=== PATIENT | male | born 1985 | race Caucasian/White ===

== ENCOUNTER 2021-02-06 17:39 | Emergency (ER) | payer MEDICAID ==
[2021-02-06] MEDS ORDERED: Sodium Chloride 0.9% 2.5 ML Syringe FLUSH PRN (20:58)
[2021-02-06] MEDS ORDERED: Sodium Chloride 0.9% 10 ML Syringe FLUSH PRN (20:58)
--- NOTE | 2021-02-06 21:02 | EDM.PDOC ---
ED HPI GENERAL MEDICAL PROBLEM - General Chief Complaint: Lower Extremity Injury/Pain Stated Complaint: WATER RETENTION IN LOWER EXTREMITY Time Seen by Provider: 02/06/21 20:56 Source of Information: Reports: Patient History Limitations: Reports: No Limitations - History of Present Illness INITIAL COMMENTS - FREE TEXT/NARRATIVE: 35-year-old male with history of RA, DJD, sarcoidosis on chronic daily prednisone for 3 years, presents with bilateral lower extremity edema worsening over the past 3 days. Associated with decreased urine output for 2 days. He denies fever, chills, vomiting, diarrhea, chest pain, shortness of breath, palpitations. He is currently taking Humira. He also notes mild discomfort to his left calf. ROS: A 10-point review of systems, other than pertinent positives and negatives as stated per HPI, is otherwise negative Past medical history: No additional pertinent history Past Surgical history: No additional pertinent history Social history: No additional pertinent history Family history: No additional pertinent history PHYSICAL EXAM General: AOx4, GCS = 15, No distress HEENT: dry mucous membrane Neck: supple, no meningismus, no Kernig or Brudzinski Cardiac: S1S2 RRR Respiratory: CTAB, no crackles or rales, no wheezing Abdomen: Soft, nontender, no rebound or guarding, nondistended, no pulsatile mass. Back: nontender Musculoskeletal: NVI distally, non pitting lower extremity bilateral edema. Mild tenderness to left calf. DP pulse +2 bilaterally Neuro: No focal deficits, CN 2 - 12 WNL. Bilateral Foot Pain Score (Numeric/FACES): 8 - Related Data Allergies Allergy/AdvReac Type Severity Reaction Status Date / Time Penicillins Allergy Airway Verified 02/06/21 19:48 Tightness terbinafine Allergy Other Verified 02/06/21 19:48 Home Meds: Home Meds ALPRAZolam [Xanax] 0.5 mg PO QID PRN 12/03/13 [History] buPROPion [buPROPion XL] 300 mg PO DAILY 12/03/13 [History] predniSONE 20 mg PO DAILY 12/03/13 [History] Acetaminophen/HYDROcodone [[place] 325-5 MG] 1 dose PO Q4H #20 tablet 04/06/19 [Rx] Albuterol Sulfate [Proair Hfa] 8.5 gm IH ASDIRECTED 04/06/19 [History] Fluticasone/Salmeterol [Advair 100-50] 2 puff INH BID 04/06/19 [History] Metoprolol Succinate [Toprol XL 50mg] 50 mg PO DAILY 04/06/19 [History] traZODone HCl [Trazodone HCl] 50 mg PO ASDIRECTED 04/06/19 [History] Lidocaine 5% [Lidoderm 5%] 1 patch TOP DAILY PRN #30 patch 04/27/19 [Rx] Adalimumab [Humira(Cf) Pen] 40 mg IM 02/06/21 [History] Furosemide [Lasix] 20 mg PO DAILY #3 tablet 02/07/21 [Rx] Past Medical History HEENT History: Reports: None Cardiovascular History: Reports: Arrhythmia Respiratory History: Reports: Other (See Below) Other Respiratory History: Sarcoidosis Gastrointestinal History: Reports: None Genitourinary History: Reports: None Musculoskeletal History: Reports: None Neurological History: Reports: None Psychiatric History: Reports: Anxiety, Depression Endocrine/Metabolic History: Reports: None Insulin Pump Model 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 Auto Body 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: 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 Hematologic History: Reports: None Immunologic History: Reports: None Oncologic (Cancer) History: Reports: None Dermatologic History: Reports: Psoriasis - Infectious Disease History Infectious Disease History: Reports: Chicken Pox - Past Surgical History Head Surgeries/Procedures: Reports: None Social & Family History - Family History Family Medical History: No Pertinent Family History - Tobacco Use Tobacco Use Status *Q: Never Tobacco User - Caffeine Use Caffeine Use: Reports: Coffee - Recreational Drug Use Recreational Drug Use: Yes Recreational Drug Type: Reports: Marijuana/Hashish Review of Systems - Review of Systems Review Of Systems: See Below (see dictation) ED EXAM, GENERAL - Physical Exam Exam: See Below (see dictation) #1 Interpretation EKG Interpretation Comments: Heart rate = 67 bpm, normal sinus rhythm, normal QRS interval, no STEMI. EKG and rhythm strip interpreted by me at 2121 Course - Vital Signs Last Recorded V/S: Last Vital Signs Temp 97.2 F 02/06/21 21:51 Pulse 71 02/06/21 22:09 Resp 16 02/06/21 21:51 BP 135/71 02/06/21 22:09 Pulse Ox 96 02/06/21 22:09 - Orders/Labs/Meds Orders: Active Orders 24 hr Category Date Time Status Cardiac Monitoring [RC] . DIRECTED Care 02/06/21 20:58 Active Sodium Chloride 0.9% [Saline Flush] Med 02/06/21 20:58 Active 10 ml FLUSH ASDIRECTED PRN Sodium Chloride 0.9% [Saline Flush] Med 02/06/21 20:58 Active 2.5 ml FLUSH ASDIRECTED PRN Saline Lock Insert [OM.PC] Stat Oth 02/06/21 20:59 Ordered Medication Orders Sodium Chloride (Sodium Chloride 0.9% 10 Ml Syringe) 10 ml FLUSH ASDIRECTED PRN PRN Reason: Keep Vein Open Last Admin: 02/06/21 21:46 Dose: 10 ml Documented by: [place] Sodium Chloride (Sodium Chloride 0.9% 2.5 Ml Syringe) 2.5 ml FLUSH ASDIRECTED PRN PRN Reason: Keep Vein Open Last Admin: 02/06/21 21:46 Dose: 2.5 ml Documented by: [place] Labs: Laboratory Tests 02/06/21 02/06/21 02/06/21 Range/Units 21:45 21:45 21:45 WBC 9.37 (4.0-11.0) K/uL RBC 5.00 (4.50-5.90) M/uL Hgb 15.7 (13.0-17.0) g/dL Hct 46.6 (38.0-50.0) % MCV 93.2 (80.0-98.0) fL MCH 31.4 (27.0-32.0) pg MCHC 33.7 (31.0-37.0) g/dL RDW Std Deviation 46.5 (28.0-62.0) fl RDW Coeff of [place] 14 (11.0-15.0) % Plt Count 322 (150-400) K/uL MPV 10.80 (7.40-12.00) fL Neut % (Auto) 67.7 (48.0-80.0) % Lymph % (Auto) 18.0 (16.0-40.0) % [place] % (Auto) 8.8 (0.0-15.0) % Eos % (Auto) 5.1 (0.0-7.0) % Baso % (Auto) 0.4 (0.0-1.5) % Neut # (Auto) 6.3 H (1.4-5.7) K/uL Lymph # (Auto) 1.7 (0.6-2.4) K/uL [place] # (Auto) 0.8 (0.0-0.8) K/uL Eos # (Auto) 0.5 (0.0-0.7) K/uL Baso # (Auto) 0.0 (0.0-0.1) K/uL Nucleated RBC % 0.0 /100WBC Nucleated RBCs # 0 K/uL D-Dimer, Quantitative 0.41 (0.0-0.50) mg/L FEU Sodium 141 (136-148) mmol/L Potassium 3.8 (3.5-5.1) mmol/L Chloride 102 (98-107) mmol/L Carbon Dioxide 26.8 (21.0-32.0) mmol/L BUN 9 (7.0-18.0) mg/dL Creatinine 1.0 (0.8-1.3) mg/dL Est Cr Clr Drug Dosing 122.16 mL/min Estimated GFR (MDRD) > 60.0 ml/min Glucose 92 (74-106) mg/dL Calcium 8.1 L (8.5-10.1) mg/dL Total Bilirubin 0.5 (0.2-1.0) mg/dL AST 28 (15-37) IU/L ALT 38 (14-63) IU/L Alkaline Phosphatase 65 (46-116) U/L Troponin I < 0.050 (0.000-0.056) ng/mL B-Natriuretic Peptide (<100) PG/ML Total Protein 7.0 (6.4-8.2) g/dL Albumin 3.7 (3.4-5.0) g/dL Globulin 3.3 (2.6-4.0) g/dL Albumin/Globulin Ratio 1.1 (0.9-1.6) Urine Color Urine Appearance Urine pH (5.0-8.0) Ur Specific [place] (1.001-1.035) Urine Protein (NEGATIVE) mg/dL Urine Glucose (UA) (NEGATIVE) mg/dL Urine Ketones (NEGATIVE) mg/dL Urine Occult Blood (NEGATIVE) Urine Nitrite (NEGATIVE) Urine Bilirubin (NEGATIVE) Urine Urobilinogen (<2.0) EU/dL Ur Leukocyte Esterase (NEGATIVE) 02/06/21 02/06/21 Range/Units 21:45 21:48 WBC (4.0-11.0) K/uL RBC (4.50-5.90) M/uL Hgb (13.0-17.0) g/dL Hct (38.0-50.0) % MCV (80.0-98.0) fL MCH (27.0-32.0) pg MCHC (31.0-37.0) g/dL RDW Std Deviation (28.0-62.0) fl RDW Coeff of Dud[place] (11.0-15.0) % Plt Count (150-400) K/uL MPV (7.40-12.00) fL Neut % (Auto) (48.0-80.0) % Lymph % (Auto) (16.0-40.0) % [place] % (Auto) (0.0-15.0) % Eos % (Auto) (0.0-7.0) % Baso % (Auto) (0.0-1.5) % Neut # (Auto) (1.4-5.7) K/uL Lymph # (Auto) (0.6-2.4) K/uL [place] # (Auto) (0.0-0.8) K/uL Eos # (Auto) (0.0-0.7) K/uL Baso # (Auto) (0.0-0.1) K/uL Nucleated RBC % /100WBC Nucleated RBCs # K/uL D-Dimer, Quantitative (0.0-0.50) mg/L FEU Sodium (136-148) mmol/L Potassium (3.5-5.1) mmol/L Chloride (98-107) mmol/L Carbon Dioxide (21.0-32.0) mmol/L BUN (7.0-18.0) mg/dL Creatinine (0.8-1.3) mg/dL Est Cr Clr Drug Dosing mL/min Estimated GFR (MDRD) ml/min Glucose (74-106) mg/dL Calcium (8.5-10.1) mg/dL Total Bilirubin (0.2-1.0) mg/dL AST (15-37) IU/L ALT (14-63) IU/L Alkaline Phosphatase (46-116) U/L Troponin I (0.000-0.056) ng/mL B-Natriuretic Peptide 14 (<100) PG/ML Total Protein (6.4-8.2) g/dL Albumin (3.4-5.0) g/dL Globulin (2.6-4.0) g/dL Albumin/Globulin Ratio (0.9-1.6) Urine Color YELLOW Urine Appearance CLEAR Urine pH 6.0 (5.0-8.0) Ur Specific [place] 1.020 (1.001-1.035) Urine Protein NEGATIVE (NEGATIVE) mg/dL Urine Glucose (UA) NEGATIVE (NEGATIVE) mg/dL Urine Ketones NEGATIVE (NEGATIVE) mg/dL Urine Occult Blood NEGATIVE (NEGATIVE) Urine Nitrite NEGATIVE (NEGATIVE) Urine Bilirubin NEGATIVE (NEGATIVE) Urine Urobilinogen 0.2 (<2.0) EU/dL Ur Leukocyte Esterase NEGATIVE (NEGATIVE) Meds: Medications Generic Name Dose Route Start Last Admin Trade Name Freq PRN Reason Stop Dose Admin Sodium Chloride 10 ml 02/06/21 20:58 02/06/21 21:46 Sodium Chloride 0.9% 10 Ml Syringe FLUSH 10 ml ASDIRECTED PRN Administration Keep Vein Open Sodium Chloride 2.5 ml 02/06/21 20:58 02/06/21 21:46 Sodium Chloride 0.9% 2.5 Ml Syringe FLUSH 2.5 ml ASDIRECTED PRN Administration Keep Vein Open - Re-Assessments/Exams Free Text/Narrative Re-Assessment/Exam: 02/06/21 23:58 he is currently stable for discharge. I performed a repeat exam and did not appreciate new abnormal findings. Patient exhibits normal vital signs and has a normal gait on road test. I advised the patient to return to the ER for reevaluation if symptoms worsened, including fever, worsening pain, or any other worrisome symptoms. I instructed the patient to follow up with their PCP within 2-3 days. MEDICAL DECISION MAKING: I reviewed the patients past medical records, lab and radiographic findings. I discussed the case with the patient. My differential diagnosis included: Dependent edema, DVT, nephrogenic edema. Kidney function unremarkable, no fever or leukocytosis to suggest for infectious etiology. No erythema or warmth to suggest cellulitis. Ultrasound was negative for DVT. EKG did not demonstrate any arrhythmia. Patient stable for discharge with short course of diuretics and instructions to keep legs elevated and wear compressive stockings. Departure - Departure Time of Disposition: 00:00 Disposition: Home, Self-Care 01 Clinical Impression: Lower extremity edema - Discharge Information *PRESCRIPTION DRUG MONITORING PROGRAM REVIEWED*: Not Applicable *COPY OF PRESCRIPTION DRUG MONITORING REPORT IN PATIENT ABHI: Not Applicable Prescriptions: Furosemide [Lasix] 20 mg PO DAILY #3 tablet Instructions: Peripheral Edema Referrals: Pilar Kuo MD [Primary Care Provider] - 3 Days Forms: ED Department Discharge Additional Instructions: The need for follow-up, as well as the timing and circumstances, are variable depending upon the specifics of your emergency department visit. If you don't have a primary care physician on staff, we will provide you with a referral. We always advise you to contact your personal physician following an emergency department visit to inform them of the circumstance of the visit and for follow-up with them and/or the need for any referrals to a consulting specialist. The emergency department will also refer you to a specialist when appropriate. This referral assures that you have the opportunity for follow-up care with a specialist. All of these measure are taken in an effort to provide you with optimal care, which includes your follow-up. Under all circumstances we always encourage you to contact your private physician who remains a resource for coordinating your care. When calling for follow-up care, please make the office aware that this follow-up is from your recent emergency room visit. If for any reason you are refused follow-up, please contact the [facility] Emergency Department at and asked to speak to the emergency department charge nurse. If you do not have a primary care doctor, please follow up with the clinics below within 3-5 days. [facility] - Primary Care [address] [place] [address] [facility] [address] [place] [address] Sepsis Event Note (ED) - Focused Exam Vital Signs: Vital Signs Temp Pulse Resp BP Pulse Ox 02/06/21 22:09 71 135/71 96 02/06/21 21:51 97.2 F 71 16 135/71 98 02/06/21 19:52 98.4 F 74 17 140/72 96 - My Orders Last 24 Hours: My Active Orders 02/06/21 20:58 Cardiac Monitoring [RC] . DIRECTED Sodium Chloride 0.9% [Saline Flush] 10 ml FLUSH ASDIRECTED PRN Sodium Chloride 0.9% [Saline Flush] 2.5 ml FLUSH ASDIRECTED PRN 02/06/21 20:59 Saline Lock Insert [OM.PC] Stat - Assessment/Plan Last 24 Hours: My Active Orders 02/06/21 20:58 Cardiac Monitoring [RC] . DIRECTED Sodium Chloride 0.9% [Saline Flush] 10 ml FLUSH ASDIRECTED PRN Sodium Chloride 0.9% [Saline Flush] 2.5 ml FLUSH ASDIRECTED PRN 02/06/21 20:59 Saline Lock Insert [OM.PC] Stat
[2021-02-06 22:17] LABS: BLOOD UREA NITROGEN,BUN 9 mg/dL (7.0-18.0); CARBON DIOXIDE,CO2 26.8 mmol/L (21.0-32.0); CHLORIDE,CL 102 mmol/L (98-107); GLUCOSE RANDOM 92 mg/dL (74-106); POTASSIUM,K 3.8 mmol/L (3.5-5.1); SODIUM,NA 141 mmol/L (136-148)
--- NOTE | 2021-02-06 22:30 | CR ---
Indication: Lower extremity edema. Technique: AP portable view of the chest. Comparison: June 12, 2018. Findings: The heart is normal in size. The lungs are clear. No infiltrate, pleural effusion, or pneumothorax is identified. Impression: No acute cardiopulmonary process Dictated by Shea Ariza MD @ 02/06/2021 10:28:23 PM (Electronically Signed)
--- NOTE | 2021-02-06 23:33 | US ---
INDICATION: Pain left leg COMPARISON: None. TECHNIQUE: A compression venous ultrasound exam was performed of the left lower extremity using kelsey-scale imaging, color Doppler and spectral Doppler analysis. FINDINGS: Sonographic imaging of the left lower extremity demonstrates normal compressibility and color Doppler venous blood flow within the common femoral vein, deep femoral vein, and the proximal greater saphenous vein. Within the thigh, the femoral vein is patent and compressible. At a lower level, the popliteal and posterior tibial veins also show normal compressibility and color Doppler venous blood flow. Limited imaging of the contralateral groin demonstrates a normal spectral waveform and color Doppler venous blood flow within the right common femoral vein. IMPRESSION: Normal venous ultrasound exam. No evidence of deep vein thrombosis within the left lower extremity. Dictated by Shea Ariza MD @ 02/06/2021 11:32:43 PM (Electronically Signed)
== END 2021-02-07 00:16 | disposition home or self-care (01) ==
LOC: MW.ED 17:39
DX: R60.0 Localized edema (principal); M06.9 Rheumatoid arthritis, unspecified; Z88.0 Allergy status to penicillin; Z88.8 Allergy status to other drugs, medicaments and biological substances; Z79.899 Other long term (current) drug therapy
CPT/HCPCS: 36415; 71045; 71045-26; 80053; 81003; 83880; 84484; 85025; 85379; 93005; 93971-26-LT; 93971-LT; 99284-25

== ENCOUNTER 2021-05-04 16:13 | Emergency (ER) | payer MEDICAID ==
--- NOTE | 2021-05-04 18:11 | EDM.PDOC ---
ED HPI GENERAL MEDICAL PROBLEM - General Chief Complaint: Abdominal Pain Stated Complaint: NOT BEEN ABLE TO KEEP FOOD DOWN 5 DAYS Time Seen by Provider: 05/04/21 17:54 Source of Information: Reports: Patient History Limitations: Reports: No Limitations - History of Present Illness INITIAL COMMENTS - FREE TEXT/NARRATIVE: Resents reporting cough and postnasal drip. He states for the last 5 days he has had his stuffy nose and postnasal drip which causes him to cough. He has been coughing so hard that it makes him throw up. He has had no fever or sore throat. He has been eating and drinking fine. He states that back before he lost his taste and smell had a chills and cough and vomiting but never tested for Covid. He is unvaccinated. He has a long history of medical problems including rheumatoid arthritis, sarcoidosis, degenerative disc disease of the lumbar spine, herniated disks. He states that he was left on prednisone too long and now is being tested for adrenal suppression. He has a primary provider in [place] who manages his chronic problems and with whom he has an appointment on May 24. Lower Back Pain Score (Numeric/FACES): 6 - Related Data Allergies Allergy/AdvReac Type Severity Reaction Status Date / Time Penicillins Allergy Airway Verified 05/04/21 16:48 Tightness terbinafine Allergy Other Verified 05/04/21 16:48 Home Meds: Home Meds ALPRAZolam [Xanax] 0.5 mg PO QID PRN 12/03/13 [History] buPROPion [buPROPion XL] 300 mg PO DAILY 12/03/13 [History] predniSONE 20 mg PO DAILY 12/03/13 [History] Albuterol Sulfate [Proair Hfa] 8.5 gm IH ASDIRECTED 04/06/19 [History] Fluticasone/Salmeterol [Advair 100-50] 2 puff INH BID 04/06/19 [History] Metoprolol Succinate [Toprol XL 50mg] 50 mg PO DAILY 04/06/19 [History] traZODone HCl [Trazodone HCl] 50 mg PO ASDIRECTED 04/06/19 [History] Adalimumab [Humira(Cf) Pen] 40 mg IM 02/06/21 [History] Furosemide [Lasix] 20 mg PO DAILY #3 tablet 02/07/21 [Rx] Gabapentin [Neurontin] 300 mg PO 05/04/21 [History] Promethazine HCl/Codeine [Promethazine-Codeine Syrup] 10 ml PO Q8HR PRN #240 syrup 05/04/21 [Rx] Past Medical History HEENT History: Reports: None Cardiovascular History: Reports: Arrhythmia Respiratory History: Reports: Other (See Below) Other Respiratory History: Sarcoidosis Gastrointestinal History: Reports: None Genitourinary History: Reports: None Musculoskeletal History: Reports: None Neurological History: Reports: None Psychiatric History: Reports: Anxiety, Depression Endocrine/Metabolic History: Reports: None 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 Pump 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 Hematologic History: Reports: None Immunologic History: Reports: None Oncologic (Cancer) History: Reports: None Dermatologic History: Reports: Psoriasis - Infectious Disease History Infectious Disease History: Reports: Chicken Pox - Past Surgical History Head Surgeries/Procedures: Reports: None Social & Family History - Family History Family Medical History: No Pertinent Family History - Tobacco Use Tobacco Use Status *Q: Former Tobacco User Used Tobacco, but Quit: Yes Month/Year Tobacco Last Used: 09/2018 - Caffeine Use Caffeine Use: Reports: Soda, Tea - Recreational Drug Use Recreational Drug Use: Yes Recreational Drug Type: Reports: Marijuana/Hashish ED ROS GENERAL - Review of Systems Review Of Systems: Comprehensive ROS is negative, except as noted in HPI. ED EXAM, GI/ABD - Physical Exam Exam: See Below Exam Limited By: No Limitations General Appearance: Alert, No Apparent Distress Ears: Normal External Exam, Normal TMs Nose: Normal Inspection, Normal Mucosa Throat/Mouth: Normal Inspection, Normal Oropharynx Head: Atraumatic, Normocephalic Neck: Normal Inspection. No: Lymphadenopathy (L), Lymphadenopathy (R) Respiratory/Chest: No Respiratory Distress, Lungs Clear, Normal Breath Sounds, No Accessory Muscle Use, Other (No cough noted in exam room) Cardiovascular: Normal Peripheral Pulses, Regular Rate, Rhythm GI/Abdominal Exam: Soft Back Exam: Normal Inspection, Full Range of Motion Extremities: Normal Inspection, Normal Range of Motion Neurological: Alert, Oriented, Normal Cognition Psychiatric: Normal Affect, Normal Mood Skin Exam: Warm, Dry, Intact, Normal Color, No Rash Lymphatic: No Adenopathy Course - Vital Signs Last Recorded V/S: Last Vital Signs Temp 36.8 C 05/04/21 16:51 Pulse 86 05/04/21 16:51 Resp 20 05/04/21 16:51 BP 138/74 05/04/21 16:51 Pulse Ox 95 05/04/21 16:51 - Orders/Labs/Meds Labs: Laboratory Tests 05/04/21 Range/Units 16:55 Influenza Type A RNA NEGATIVE (NEGATIVE) Influenza Type B RNA NEGATIVE (NEGATIVE) SARS-CoV-2 RNA (ANDREW) POSITIVE H (NEGATIVE) Departure - Departure Time of Disposition: 18:12 Disposition: Home, Self-Care 01 Condition: Good Clinical Impression: COVID-19 - Discharge Information Prescriptions: Promethazine HCl/Codeine [Promethazine-Codeine Syrup] 10 ml PO Q8HR PRN #240 syrup PRN Reason: Cough Referrals: Pilar Kuo MD [Primary Care Provider] - Forms: ED Department Discharge Additional Instructions: The following information is given to patients seen in the emergency department who are being discharged to home. This information is to outline your options for follow-up care. We provide all patients seen in our emergency department with a follow-up referral. The need for follow-up, as well as the timing and circumstances, are variable depending upon the specifics of your emergency department visit. If you don't have a primary care physician on staff, we will provide you with a referral. We always advise you to contact your personal physician following an emergency department visit to inform them of the circumstance of the visit and for follow-up with them and/or the need for any referrals to a consulting specialist. The emergency department will also refer you to a specialist when appropriate. This referral assures that you have the opportunity for follow-up care with a specialist. All of these measure are taken in an effort to provide you with optimal care, which includes your follow-up. Under all circumstances we always encourage you to contact your private physician who remains a resource for coordinating your care. When calling for follow-up care, please make the office aware that this follow-up is from your recent emergency room visit. If for any reason you are refused follow-up, please contact the [facility] Emergency Department at and asked to speak to the emergency department charge nurse. 1. Follow-up with your primary provider in [place] as previously scheduled 2. May take cough syrup every 8 hours as needed for cough. No driving or operating machinery 3. Drink plenty of fluids and rest 4. Sinus toileting: Use a Sowmya pot or saline spray rinse bottle, follow with a nasal decongestant such as Afrin 1 spray in each nostril. In the evening, follow that with 2 sprays each nostril of the either Nasacort or Flonase. 5. Your COVID test is positive. You are at high risk for disease progression due to your weight, chronic disease and immunocompromising medications. You will be called tomorrow for monclonal antibody infusions to treat your COVID. You will be called by the [facility] department regarding quarantine. Sepsis Event Note (ED) - Evaluation Sepsis Screening Result: No Definite Risk - Focused Exam Vital Signs: Vital Signs Temp Pulse Resp BP Pulse Ox 05/04/21 16:51 36.8 C 86 20 138/74 95
[2021-05-04 18:30] LABS: CORONAVIRUS COVID-19 NAA POSITIVE (NEGATIVE); INFLUENZA A NAA NEGATIVE (NEGATIVE); INFLUENZA B NAA NEGATIVE (NEGATIVE)
== END 2021-05-04 19:10 | disposition home or self-care (01) ==
LOC: MW.ED 16:13
DX: U07.1 COVID-19 (principal); Z88.0 Allergy status to penicillin; Z88.1 Allergy status to other antibiotic agents; Z79.899 Other long term (current) drug therapy; Z87.891 Personal history of nicotine dependence
CPT/HCPCS: 0240U; 99283

== ENCOUNTER 2021-05-06 22:08 | Emergency (ER) | payer MEDICAID ==
[2021-05-06] MEDS ORDERED: Ketorolac 30 MG/ML SDV IM ONE (23:21)
--- NOTE | 2021-05-06 23:24 | EDM.PDOC ---
ED HPI GENERAL MEDICAL PROBLEM - General Chief Complaint: Respiratory Problem Stated Complaint: LOW OXYGEN Time Seen by Provider: 05/06/21 22:27 - History of Present Illness INITIAL COMMENTS - FREE TEXT/NARRATIVE: CHIEF COMPLAINT(S): "I am feeling worse." HISTORY OF PRESENT ILLNESS: This is a 35-year-old man with a recent diagnosis of COVID-19 status post monoclonal antibody infusion yesterday who comes to the emergency department with a chief complaint of "I am feeling worse." The patient states that he is feeling worse. He states that the cough is not getting any better and that he is having posttussive vomiting with streaks of blood. He denies any hemoptysis. He denies any lower extremity edema. He states his body aches are just not going away and he is now starting to get a headache which is bifrontal not associated with any blurry vision, double vision, loss of vision. He denies any trouble walking speaking or swallowing. He states that he has tried the codeine cough syrup but "I am not taking anythin g because I have that omicron thing." REVIEW OF SYSTEMS: Constitutional: Denies fever, chills. Eyes: Denies eye pain Ears, Nose, Mouth, & Throat: Denies earache Cardiovascular: Denies chest pain Respiratory: Positive for productive cough. Denies shortness of breath Gastrointestinal: Positive for posttussive emesis. Denies Nausea, vomiting, diarrhea, hematochezia. Genitourinary: Denies hematuria Skin:Denies a rash MSK: Positive for body aches Neurological: Positive for headache. Denies numbness, tingling, weakness Psychiatric: Denies depression PAST MEDICAL HISTORY: As per history of present illness and as reviewed below otherwise noncontributory. SURGICAL HISTORY: As per history of present illness and as reviewed below otherwise noncontributory. SOCIAL HISTORY: As per history of present illness and as reviewed below otherwise noncontributory. FAMILY HISTORY: As per history of present illness and as reviewed below otherwise noncontributory. EXAMINATION OF ORGAN SYSTEMS/BODY AREAS: Constitutional: Blood pressure was 122/65, heart rate 105, respiratory rate 22 with an oxygen saturation 97% on room air. Temperature 36.7 General: Well-appearing man who is in no acute distress Psychiatric: Appropriate mood and affect. Eyes: No scleral icterus or conjunctival erythema ENMT: Moist mucous membranes. No pharyngeal erythema Cardiovascular: Regular, rate, and rhythm. No gallops, murmurs, or rubs. Bilateral upper extremity pulses symmetric and intact. No peripheral edema. No JVD. Respiratory: Lungs clear to auscultation bilaterally. No wheezes, rales, or rhonchi. Speaking in full sentences. No increased work of breathing Gastrointestinal: Soft, non-tender, non-distended. Normoactive bowel sounds Genitourinary: No suprapubic tenderness Musculoskeletal: Normal range of motion. Skin: No lesions or abrasions. Neurological: Alert, GCS 15 strength and sensation grossly intact in upper and lower extremities bilaterally MEDICAL DECISION MAKING AND COURSE IN THE ED WITH INTERPRETATION/REVIEW OF DIAGNOSTIC STUDIES: This is a 35-year-old man without any reported past medical history who presents to the emergency department with continued Covid symptoms s tatus post monoclonal antibody infusion yesterday with mild tachycardia otherwise appears well. At this time we will treat the patient with Toradol for his body aches and his headache. I did discuss with him at this time that I do not believe any further work-up is indicated. I did discuss appropriate treatment at home with Tylenol and Motrin and p.o. hydration. He was given strict return precautions. The patient was amenable to discharge and had no further questions. DISPOSITION: The patient was discharged home in stable condition. The patient will follow up with his primary care physician in 3 to 5 days CONDITION: Fair PROCEDURES: None FINAL IMPRESSION(S)/DIAGNOSES: 1. Acute COVID-19 infection Zohaib Lott M.D. Headache Pain Score (Numeric/FACES): 8 - Related Data Allergies Allergy/AdvReac Type Severity Reaction Status Date / Time Penicillins Allergy Airway Verified 05/06/21 22:22 Tightness terbinafine Allergy Other Verified 05/06/21 22:22 Home Meds: Home Meds ALPRAZolam [Xanax] 0.5 mg PO QID PRN 12/03/13 [History] buPROPion [buPROPion XL] 300 mg PO DAILY 12/03/13 [History] predniSONE 20 mg PO DAILY 12/03/13 [History] Albuterol Sulfate [Proair Hfa] 8.5 gm IH ASDIRECTED 04/06/19 [History] Fluticasone/Salmeterol [Advair 100-50] 2 puff INH BID 04/06/19 [History] Metoprolol Succinate [Toprol XL 50mg] 50 mg PO DAILY 04/06/19 [History] traZODone HCl [Trazodone HCl] 50 mg PO ASDIRECTED 04/06/19 [History] Adalimumab [Humira(Cf) Pen] 40 mg IM 02/06/21 [History] Furosemide [Lasix] 20 mg PO DAILY #3 tablet 02/07/21 [Rx] Gabapentin [Neurontin] 300 mg PO 05/04/21 [History] Promethazine HCl/Codeine [Promethazine-Codeine Syrup] 10 ml PO Q8HR PRN #240 syrup 05/04/21 [Rx] Past Medical History HEENT History: Reports: None Cardiovascular History: Reports: Arrhythmia Respiratory History: Reports: Other (See Below) Other Respiratory History: Sarcoidosis Gastrointestinal History: Reports: None Genitourinary History: Reports: None Musculoskeletal History: Reports: None Neurological History: Reports: None Psychiatric History: Reports: Anxiety, Depression Endocrine/Metabolic History: Reports: None 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 Hematologic History: Reports: None Immunologic History: Reports: None Oncologic (Cancer) History: Reports: None Dermatologic History: Reports: Psoriasis - Infectious Disease History Infectious Disease History: Reports: Chicken Pox - Past Surgical History Head Surgeries/Procedures: Reports: None Social & Family History - Family History Family Medical History: No Pertinent Family History - Tobacco Use Second Hand Smoke Exposure: No - Caffeine Use Caffeine Use: Reports: None - Recreational Drug Use Recreational Drug Use: No ED ROS GENERAL - Review of Systems Review Of Systems: See Below ED EXAM, GENERAL - Physical Exam Exam: See Below Course - Vital Signs Last Recorded V/S: Last Vital Signs Temp 36.7 C 05/06/21 22:15 Pulse 99 05/06/21 23:45 Resp 16 05/06/21 23:45 BP 109/69 05/06/21 23:45 Pulse Ox 96 05/06/21 23:45 - Orders/Labs/Meds Meds: Medications Discontinued Medications Generic Name Dose Route Start Last Admin Trade Name Freq PRN Reason Stop Dose Admin Ketorolac Tromethamine 30 mg 05/06/21 23:21 05/06/21 23:44 Ketorolac 30 Mg/Ml Sdv IM 05/06/21 23:22 30 mg ONETIME ONE Administration Departure - Departure Time of Disposition: 23:24 Disposition: Home, Self-Care 01 Condition: Fair Clinical Impression: COVID-19 - Discharge Information Instructions: 10 Things You Can Do to Manage Your COVID-19 Symptoms at Home - [facility] (11/13/2020) Referrals: Pilar Kuo MD [Primary Care Provider] - Forms: ED Department Discharge Additional Instructions: Your evaluated today on an emergent basis. At this time I do believe your symptoms are likely secondary to receiving the monoclonal antibody infusion. As discussed after the infusion some people experience temporary worsening of their symptoms. All of your vital signs today were normal and your oxygen saturation was also within normal limits. As discussed I would like you to continue with your isolation and use Tylenol and Motrin for pain relief. It is important that you maintain adequate hydration. Follow-up with your primary care physician after isolation. Please use: Tylenol 500-1000mg every 6 hours (DO NOT TAKE MORE THAN 4000mg in 1 day) Ibuprofen 400mg every 6 hours (Take with food as it can cause ulcers, GI upset) Example schedule: 8:00 AM (Tylenol 500-1000mg) 11:00 AM (Ibuprofen 400mg) 2:00 PM (Tylenol 500-1000mg) 5:00 PM (Ibuprofen 400mg) [facility] [address] [place] [address] [place] [address] The patient is informed of any results of their evaluation and diagnostic workup and all questions are answered. They are given discharge instructions and return precautions. The patient is stable for discharge. The patient states they understand and agree with the plan and that they will return if their symptoms get worse or if they have any new concerns. The following information is given to patients seen in the emergency department who are being discharged to home. This information is to outline your options for follow-up care. We provide all patients seen in our emergency department with a follow-up referral. The need for follow-up, as well as the timing and circumstances, are variable depending upon the specifics of your emergency department visit. If you don't have a primary care physician on staff, we will provide you with a referral. We always advise you to contact your personal physician following an emergency department visit to inform them of the circumstance of the visit and for follow-up with them and/or the need for any referrals to a consulting specialist. The emergency department will also refer you to a specialist when appropriate. This referral assures that you have the opportunity for follow-up care with a specialist. All of these measure are taken in an effort to provide you with optimal care, which includes your follow-up. Under all circumstances we always encourage you to contact your private physician who remains a resource for coordinating your care. When calling for follow-up care, please make the office aware that this follow-up is from your recent emergency room visit. If for any reason you are refused follow-up, please contact the [facility] Emergency Department at and asked to speak to the emergency department charge nurse. Sepsis Event Note (ED) - Evaluation Sepsis Screening Result: No Definite Risk
== END 2021-05-06 23:48 | disposition home or self-care (01) ==
LOC: MW.ED 22:08
DX: U07.1 COVID-19 (principal); Z88.0 Allergy status to penicillin; Z88.8 Allergy status to other drugs, medicaments and biological substances
CPT/HCPCS: 96372; 99283; J1885